=== PATIENT | female | born 1985 | race Caucasian/White ===

== ENCOUNTER 2022-12-05 14:37 | Emergency (ER) | payer OTHER, SELFPAY | END 2022-12-05 16:18 | disposition left against medical advice (07) | LOC: HO.ED 16:12 | PROVIDERS: Emergency Provider Emergency Medicine; PCP Nurse Practitioner Family | DX: R10.9 Unspecified abdominal pain (principal) ==

== ENCOUNTER 2024-03-09 11:30 | Emergency (ER) | payer OTHER, SELFPAY ==
[2024-03-09 11:33] VITALS: BP 176/63; PULSE 63; O2SAT 98
--- NOTE | 2024-03-09 11:47 | ED_ITS ---
HPI - General Adult General Chief complaint: Nausea/Vomiting/Diarrhea Stated complaint: N/V X 12H,HIGH BP 200/102 PER EMS Time Seen by Provider: 03/09/24 11:47 Source: patient, family, EMS, RN notes reviewed and old records reviewed Mode of arrival: EMS Limitations: no limitations History of Present Illness ED Provider: Tara HPI narrative: Patient is a 38-year-old female with history of asthma, HTN, PTSD, self-harm behavior, smoker, polysubstance use presenting to the emergency department with complaint of nausea and vomiting since last night. States some of the emesis has been blood-tinged. Denies diarrhea, fevers. Denies known sick contacts. Denies dizziness, lightheadedness, syncope. MD complaint: vomiting Onset (ago): hour(s) Treatments prior to arrival: none Related Data Previous Rx's ?Medication ?Instructions ?Recorded ondansetron 4 mg disintegrating 4 mg PO Q8H PRN nausea and 03/09/24 tablet vomiting #10 tabs Allergies Allergy/AdvReac Type Severity Reaction Status Date / Time latex [LATEX] Allergy Intermediate RASH Unverified 11/14/19 16:32 amoxicillin Allergy Unknown Verified 03/09/24 11:51 peas Allergy Unknown Verified 03/09/24 11:51 Penicillins [PCN] Allergy Unknown Verified 03/09/24 11:51 sulfamethoxazole Allergy Unknown Verified 03/09/24 11:51 [From Bactrim] trimethoprim [From Bactrim] Allergy Unknown Verified 03/09/24 11:51 Latex Allergy Unknown rash Uncoded 09/11/12 00:00 Review of Systems 2 Review of Systems: As per HPI. Yes all other systems are reviewed and are negative Constitutional: Constitutional: Reports as per HPI [facility] Social History Social History Alcohol intake: current Smoked in Last 30 Days: Yes Use of substances other than those prescribed or required for medical reasons: Yes Substance Use Type: Marijuana Substance Use Frequency: Chronic Longstanding Advance Directives: No Advance Directives Information Provided: Yes Patient : No Physical Exam ED Vital Signs: Vital Signs - 24 hr 03/09/24 11:49 03/09/24 12:28 Temperature 98.1 F Pulse Rate 52 56 Respiratory Rate 20 16 Blood Pressure 135/76 174/86 H Pulse Oximetry 95 97 Oxygen Delivery Method Room Air Room Air BMI result Body Mass Index 34.7 Vital signs have been reviewed and appear to be correct. Blood pressure normal. Heart rate normal. Respiratory rate normal. Temperature normal. Oxygen saturation normal. Const General: cooperative, healthy appearing and no acute distress Orientation/consciousness: oriented to person, oriented to place, oriented to time and patient oriented x3 Limitations: no limitations [facility] Head: Yes normocephalic and Yes atraumatic Ears: external ears normal General nose exam: Normal external nose present Face and sinus: Yes face symmetric Mouth: oropharynx normal and moist mucous membranes Throat: Yes uvula midline Eyes Pupils: Equal, round and reactive pupils present Neck Neck: Yes normal visual inspection and Yes supple Resp Effort & Inspection: normal respiratory effort and able to speak in complete sentences Auscultation: clear to auscultation bilaterally Cardio Rate: regular rate Rhythm: regular rhythm Heart sounds: S1 normal heart sound present and S2 normal heart sound present GI Inspection: Yes scar Palpation (GI): Soft to palpation and nontender Auscultation: normoactive bowel sounds General: Yes no CVA tenderness Back/Spine/Pelvis Back: no CVA tenderness Skin General skin exam: elasticity normal and turgor normal Neuro General: oriented to person, oriented to place, oriented to time, patient oriented x3, moves all extremities, no focal motor deficits and CN's II-XI intact bilaterally Cranial nerves: Yes Equal, round and reactive pupils present Cognition (Neuro): normal cognition Extrem General: Yes full ROM, Yes no pedal edema and Yes no calf tenderness Psych Mental Status: mental status grossly normal Affect: normal affect Thought process: Normal thought process present Medications Administered Discontinued Medications Generic Name Dose Route Start Last Admin Trade Name Derick PRN Reason Stop Dose Admin Haloperidol Lactate 2.5 mg 03/09/24 12:21 03/09/24 12:32 Haloperidol Lactate 5 Mg/Ml Vial IVPUSH 03/09/24 12:22 2.5 mg ONCE ONE Administration Sodium Chloride 1,000 mls @ 999 mls/hr 03/09/24 12:00 03/09/24 13:16 Ns IV 03/09/24 13:00 Infused .Q1H1M MILLICENT Infusion Lorazepam 1 mg 03/09/24 12:21 03/09/24 12:32 Lorazepam 2 Mg/Ml Vial IVPUSH 03/09/24 12:22 1 mg ONCE ONE Administration Ondansetron HCl 4 mg 03/09/24 11:47 03/09/24 12:11 Ondansetron Hcl 4 Mg/2 Ml Vial IVPUSH 03/09/24 11:48 4 mg ONCE ONE Administration Medical Decision Making Medical Decision Making [facility] Narrative: Patient is a 38-year-old female with history of asthma, HTN, PTSD, self-harm behavior, smoker, polysubstance use presenting to the emergency department with complaint of nausea and vomiting since last night. On exam patient is awake, A+Ox3, VS WNL, afebrile, normal neurological exam without focal deficits, physical exam findings as above. Given reported symptoms and physical exam findings, initial differential includes but is not limited to viral illness, COVID, influenza, gastritis, gastroenteritis, electrolyte abnormality, cyclical vomiting. Labs notable for mild leukocytosis, otherwise unremarkable. Viral serology negative. Patient reports significant improvement in symptoms after medications given in the ED. Will discharge home with Zofran, advised to follow up with PCP. Return precautions discussed with patient and boyfriend at bedside. Patient verbalized understanding of and agreement with plan. Differential Diagnosis Differential Diagnoses: The differential diagnosis associated with the presentation includes As per [facility] Admission/Observation Consideration of admission/observation: Escalation of care including admission/observation considered Patient would have been admitted to the hospital had their work up had any findings where hospital admission was appropriate and their clinical presentation warranted hospital admission. Lab Data [facility] Lab Attestation statement: I reviewed the patient's lab results. As per [facility] 03/09/24 12:05 03/09/24 12:05 Labs: Lab Results 03/09/24 03/09/24 Range/Units 12:05 12:18 WBC 13.3 H (4.8-10.8) X10*3/uL RBC 4.63 (4.20-5.50) X10*6/uL Hgb 14.9 (12.0-16.0) g/dl Hct 42.5 (37.0-47.0) % MCV 91.8 (80.0-98.0) fL MCH 32.2 (27.0-33.0) pg MCHC 35.1 H (31.0-35.0) g/dl RDW 13.2 (11.0-16.0) % Plt Count 386 (160-400) X10*3/uL MPV 8.8 L (9.4-12.3) fL Immature Gran % (Auto) 0.4 (0.0-0.4) % Neut % (Auto) 90.1 H (45-73) % Lymph % (Auto) 5.5 L (20-40) % Cobb % (Auto) 3.8 (2-11) % Eos % (Auto) 0.0 (0-4) % Baso % (Auto) 0.2 (0-2) % Lymph # (Auto) 0.7 L (1.2-4.9) X10*3/uL Cobb # (Auto) 0.5 (0.1-1.2) X10*3/uL Eos # (Auto) 0.0 (0.0-0.4) X10*3/uL Baso # (Auto) 0.0 (0.0-0.2) X10*3/uL Abs Immat Gran (auto) 0.05 H (0.00-0.03) X10*3/uL Absolute Neuts (auto) 12.0 H (2.0-8.3) x10*3/uL Absolute Nucleated RBC 0.000 (0.0-0.012) X10*3/uL Nucleated RBC % (auto) 0.0 (0.0-0.2) /100WBC Smear Tech's Comments VERIFIED Sodium 145 (135-145) mmol/L Potassium 3.3 (3.3-5.1) mmol/L Chloride 100 (96-108) mmol/L Carbon Dioxide 30 H (22-29) mmol/L Anion Gap 18 (12-20) BUN 14 (9-16) mg/dL Creatinine 1.07 (0.5-1.4) mg/dL Estim Creat Clear Calc 73.3 Estimated GFR 58 Random Glucose 153 H (60-115) mg/dL Calcium 10.8 H (8.4-10.2) mg/dL Magnesium 2.0 (1.6-2.6) mg/dL Total Bilirubin 0.7 (0.0-1.0) mg/dL AST 20 (5-31) U/L ALT 15 (0-31) U/L Alkaline Phosphatase 80 (39-117) U/L Total Protein 8.4 H (6.5-8.0) g/dL Albumin 5.0 (3.5-5.0) g/dL Beta HCG, Quant < 2 mIU/mL Influenza Type A (PCR) NEGATIVE (Negative) Influenza Type B (PCR) NEGATIVE (Negative) RSV RNA Qual (PCR) NEGATIVE (Negative) SARS-CoV-2 RNA (RT-PCR) NEGATIVE (Negative) Discharge Plan Discharge Clinical Impression: Nausea & vomiting Patient Disposition: Home, Self-Care Instructions: Acute Nausea and Vomiting (ED) Additional Instructions: You were evaluated in the emergency department today for epigastric pain, nausea and vomiting which is most likely due to irritation of the lining of your stomach. Your symptoms improved with medication in the ED. You are being prescribed ondansetron which you can use every 8 hours for nausea. You can also use Mylanta, which is available over the counter, to help manage your symptoms. Avoid spicy or acidic foods. Please follow up with your primary care physician within two days. Return to the emergency department if you experience shortness of breath, worsening or uncontrolled abdominal pain, chest pain, light headedness, faiting, persistent nausea and vomiting, bloody vomit or stools, black, tarry stools, or any other concerning symptoms. Prescriptions: New ondansetron 4 mg tablet,disintegrating 4 mg PO Q8H PRN (Reason: nausea and vomiting) Qty: 10 0RF Print Language: Greenlandic
[2024-03-09 11:49] VITALS: BP 135/76; PULSE 52; RESP 20; O2SAT 95; BMI 34.7
[2024-03-09] MEDS: 0.9 % Sodium Chloride 1,000 ML 999 ML IV (12:10)
[2024-03-09] MEDS: ondansetron HCL 4 MG/2 ML VIAL IVPUSH (12:11)
[2024-03-09 12:12] LABS: Basophils Percent Auto 0.2 % (0-2); Hematocrit 42.5 % (37.0-47.0); Hemoglobin 14.9 g/dl (12.0-16.0); Imm Gran Abs Auto 0.05 X10*3/uL (0.00-0.03); Imm Gran Pct Auto 0.4 % (0.0-0.4); Lymphocytes Absolute Auto 0.7 X10*3/uL (1.2-4.9); Lymphocytes Percent Auto 5.5 % (20-40); MANUAL DIFF FLAG SCAN; Mean Corpuscular HGB Conc 35.1 g/dl (31.0-35.0); Mean Corpuscular Hemoglobin 32.2 pg (27.0-33.0); Mean Corpuscular Volume 91.8 fL (80.0-98.0); Mean Platelet Volume 8.8 fL (9.4-12.3); Monocytes Absolute Auto 0.5 X10*3/uL (0.1-1.2); Monocytes Percent Auto 3.8 % (2-11); Neutrophils Percent Auto 90.1 % (45-73); Platelet Count 386 X10*3/uL (160-400); Red Blood Count 4.63 X10*6/uL (4.20-5.50); Red Cell Distribution Width 13.2 % (11.0-16.0); SCAN SMEAR FLAG 1; White Blood Count 13.3 X10*3/uL (4.8-10.8)
[2024-03-09 12:28] VITALS: BP 174/86; PULSE 56; RESP 16; TEMP 36.7; O2SAT 97
[2024-03-09 12:30] LABS: SLIDE REVIEW VERIFIED
[2024-03-09] MEDS: LORazepam 2 MG/ML VIAL 1 MG IVPUSH (12:32)
[2024-03-09] MEDS: Haloperidol Lactate 5 MG/ML VIAL 2.5 MG IVPUSH (12:32)
[2024-03-09 12:41] LABS: Alanine Aminotransferase 15 U/L (0-31); Alkaline Phosphatase 80 U/L (39-117); Anion Gap 18 (12-20); Aspartate Amino Transferase 20 U/L (5-31); Bilirubin Total 0.7 mg/dL (0.0-1.0); Blood Urea Nitrogen 14 mg/dL (9-16); Calcium 10.8 mg/dL (8.4-10.2); Carbon Dioxide 30 mmol/L (22-29); Chloride 100 mmol/L (96-108); Creatinine Clr Calc Pharmacy 73.3; Estimated Glomerular Filt Rate 58; Glucose Random 153 mg/dL (60-115); Potassium 3.3 mmol/L (3.3-5.1); Sodium 145 mmol/L (135-145); Total Protein 8.4 g/dL (6.5-8.0)
[2024-03-09 12:45] LABS: HCG Quantitative < 2 mIU/mL
[2024-03-09 13:30] LABS: Influenza A PCR NEGATIVE (Negative); Influenza B PCR NEGATIVE (Negative); Resp Syncy Virus RNA Qual PCR NEGATIVE (Negative); SARS COV2 PCR INHOUSE NEGATIVE (Negative)
[2024-03-09 15:52] VITALS: BP 131/78; PULSE 75; RESP 16; TEMP 36.8; O2SAT 93
[2024-03-09 16:54] VITALS: BP 131/78; PULSE 75; RESP 16; TEMP 36.8; O2SAT 93
== END 2024-03-09 16:54 | disposition home or self-care (01) ==
PROVIDERS: Registered Nurse Emergency; Emergency Provider Emergency Medicine; PCP Internal Medicine
DX: R11.2 Nausea with vomiting, unspecified (principal); Z03.818 Encounter for observation for suspected exposure to other biological agents ruled out; I10 Essential (primary) hypertension; J45.909 Unspecified asthma, uncomplicated; F17.210 Nicotine dependence, cigarettes, uncomplicated
CPT/HCPCS: 0241U; 80053; 83735; 84702; 85025; 96361; 96374; 96375; 99284; 99285; J1630; J2060; J2405